=== PATIENT | female | born 1975 | race Caucasian/White ===

== ENCOUNTER 2023-07-28 19:02 | Emergency (ER) | payer OTHER, SELFPAY ==
[2023-07-28 19:05] VITALS: BP 146/70
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
== END 2023-07-28 20:03 | disposition home or self-care (01) ==
LOC: EMR 19:02
PROVIDERS: EMERGENCY PHYSICIAN Emergency Medicine; FAMILY PHYSICIAN Family Medicine
DX: S01.81XA Laceration without foreign body of other part of head, initial encounter (principal); W22.8XXA Striking against or struck by other objects, initial encounter; Y93.89 Activity, other specified; Z91.040 Latex allergy status
CPT/HCPCS: 99282; 12011